=== PATIENT | female | born 1990 | race Caucasian/White ===

== ENCOUNTER 2024-07-09 00:47 | Emergency (ER) | payer OTHER ==
[~2024-07-09] VITALS: Ht 167.6 cm; Wt 69.0 kg
[2024-07-09 01:06] VITALS: O2SAT 100
[2024-07-09 01:48] VITALS: BP 138/77; PULSE 66; RESP 18; TEMP 37; O2SAT 100
== END 2024-07-09 02:10 | disposition left against medical advice (07) ==
LOC: ER 00:47
DX: K62.89 Other specified diseases of anus and rectum (principal); Z53.21 Procedure and treatment not carried out due to patient leaving prior to being seen by health care provider